=== PATIENT | male | born 1965 | race Caucasian/White ===

== ENCOUNTER 2016-08-30 19:19 | Inpatient (IN) | payer OTHER ==
[~2016-08-30] VITALS: Ht 175.3 cm; Wt 104.3 kg
[2016-08-30] MEDS ORDERED: ESCI10TA PO (20:38)
[2016-08-30] MEDS ORDERED: CARB-93 PO ×2 (20:38)
[2016-08-30] MEDS ORDERED: QUET25TA PO (20:38)
[2016-08-30] MEDS ORDERED: MULT-416 PO (20:38)
[2016-08-30] MEDS ORDERED: DONE5TAB34 PO (20:38)
[2016-08-30 20:45] VITALS: BP 147/81
[2016-08-30] MEDS ORDERED: ENOXAPARIN SODIUM 40 MG/0.4 ML DISP.SYRIN SQ SCH (23:00)
[2016-08-30] MEDS ORDERED: CEFTRIAXONE 1 G VIAL IV SCH (23:00)
[2016-08-30] MEDS ORDERED: ENOXAPARIN SODIUM 40 MG/0.4 ML DISP.SYRIN SQ ONE (23:14)
[2016-08-30] MEDS ORDERED: IV D5W 50 ML IV ONE (23:14)
[2016-08-30] MEDS ORDERED: CEFTRIAXONE 1 G VIAL ONE (23:14)
[2016-08-30] MEDS ORDERED: IV NS 0.9% 250 ML IV ONE (23:38)
[2016-08-30] MEDS ORDERED: SECONDARY IV SET 1 EA INFUS.SET MC ONE (23:39)
[2016-08-30] MEDS ORDERED: IV SET PRIMARY PUMP SET 1 EA INFUS.SET MC ONE (23:39)
[2016-08-31 06:08] LABS: BASOPHILS # (AUTO) 0.1 /CMM (0.0-0.2); BASOPHILS % (AUTO) 0.5 % (0.0-2.0); DIFF TOTAL % 100 %; EOSINOPHILS # (AUTO) 0.2 /CMM (0.0-0.7); EOSINOPHILS % (AUTO) 1.5 % (0.0-6.0); HEMATOCRIT 47 % (39-51); HEMOGLOBIN 16.3 g/dL (13.5-17.5); LYMPHOCYTES # (AUTO) 3.4 /CMM (0.8-4.8); LYMPHOCYTES % (AUTO) 27.1 % (20.0-44.0); MEAN CORPUSCULAR HEMOGLOBIN 30 PG (26.0-33.0); MEAN CORPUSCULAR HGB CONC 35 g/dl (31.0-36.0); MEAN CORPUSCULAR VOLUME 87 fL (80-96); MONOCYTES # (AUTO) 0.8 /CMM (0.1-1.30); MONOCYTES % (AUTO) 6.1 % (2.0-12.0); NEUTROPHILS # (AUTO) 8.2 /CMM (1.8-8.9); NEUTROPHILS % (AUTO) 64.8 % (43.0-81.0); PLATELET COUNT (AUTO) 278 /CMM (150-450); RED BLOOD CELL COUNT(AUTO) 5.44 MIL/uL (4.5-6.0); WHITE BLOOD COUNT (AUTO) 12.6 K/uL (4.3-11.0)
[2016-08-31 06:17] LABS: CALCIUM, SERUM 8.9 mg/dL (8.5-10.1); CREATININE 0.8 mg/dL (0.6-1.3)
[2016-08-31 08:00] VITALS: BP 153/89
[2016-08-31] MEDS ORDERED: Z GUARD REMEDY 2 OZ OINT TP PRN (09:30)
[2016-08-31] MEDS: NEOMY SULF/BACITRAC ZN/POLY 15 GM TUBE TP SCH (10:34)
[2016-08-31] MEDS: Z GUARD REMEDY 2 OZ OINT TP SCH ×2 (10:35→17:32)
[2016-08-31] MEDS ORDERED: QUET50TA14 PO (11:37)
[2016-08-31] MEDS ORDERED: CARB1TAB40 PO (11:37)
[2016-08-31] MEDS ORDERED: CARB1TAB21 PO (11:37)
[2016-08-31] MEDS: ESCITALOPRAM OXALATE (10 MG) 10 MG TABLET PO SCH (12:34)
[2016-08-31] MEDS: DONEPEZIL 5 MG TABLET PO SCH (12:34)
[2016-08-31 16:00] VITALS: BP 162/81
[2016-08-31] MEDS: QUETIAPINE FUMARATE 25 MG TABLET PO SCH (17:31)
[2016-08-31] MEDS: CARBIDOPA/LEVODOPA 25/100 MG 1 UDTAB PO SCH ×2 (17:31→20:41)
[2016-08-31] MEDS ORDERED: SEROQUEL 25 MG PO SCH (18:00)
[2016-08-31 20:14] VITALS: BP 133/82
[2016-08-31] MEDS: ENOXAPARIN SODIUM 40 MG/0.4 ML DISP.SYRIN SQ SCH (20:44)
[2016-08-31] MEDS: CARBIDOPA/LEVA CR 25/100MG 1 TAB.SA PO SCH (22:23)
[2016-08-31] MEDS: CEFTRIAXONE 1 G in IV D5W 50 ML IV SCH (22:28)
[2016-09-01 08:00] VITALS: BP 120/74
[2016-09-01] MEDS: ESCITALOPRAM OXALATE (10 MG) 10 MG TABLET PO SCH (08:33)
[2016-09-01] MEDS: DONEPEZIL 5 MG TABLET PO SCH (08:33)
[2016-09-01] MEDS: NEOMY SULF/BACITRAC ZN/POLY 15 GM TUBE TP SCH (08:34)
[2016-09-01] MEDS: Z GUARD REMEDY 2 OZ OINT TP SCH ×2 (08:34→16:29)
[2016-09-01] MEDS: CARBIDOPA/LEVODOPA 25/100 MG 1 UDTAB PO SCH ×5 (08:38→20:18)
[2016-09-01 16:00] VITALS: BP 117/69
[2016-09-01] MEDS: QUETIAPINE FUMARATE 25 MG TABLET PO SCH (17:29)
[2016-09-01 20:00] VITALS: BP 138/85
[2016-09-01] MEDS: CARBIDOPA/LEVA CR 25/100MG 1 TAB.SA PO SCH (21:57)
[2016-09-01] MEDS: ENOXAPARIN SODIUM 40 MG/0.4 ML DISP.SYRIN SQ SCH (21:57)
[2016-09-01] MEDS: CEFTRIAXONE 1 G in IV D5W 50 ML IV SCH (22:00)
[2016-09-02 06:11] LABS: BASOPHILS # (AUTO) 0.1 /CMM (0.0-0.2); BASOPHILS % (AUTO) 0.8 % (0.0-2.0); DIFF TOTAL % 100 %; EOSINOPHILS # (AUTO) 0.2 /CMM (0.0-0.7); EOSINOPHILS % (AUTO) 1.3 % (0.0-6.0); HEMATOCRIT 48 % (39-51); HEMOGLOBIN 16.3 g/dL (13.5-17.5); LYMPHOCYTES # (AUTO) 4.7 /CMM (0.8-4.8); MEAN CORPUSCULAR HEMOGLOBIN 30 PG (26.0-33.0); MEAN CORPUSCULAR HGB CONC 34 g/dl (31.0-36.0); MEAN CORPUSCULAR VOLUME 88 fL (80-96); MONOCYTES % (AUTO) 7.9 % (2.0-12.0); NEUTROPHILS # (AUTO) 6.5 /CMM (1.8-8.9); PLATELET COUNT (AUTO) 256 /CMM (150-450); RED BLOOD CELL COUNT(AUTO) 5.51 MIL/uL (4.5-6.0); WHITE BLOOD COUNT (AUTO) 12.5 K/uL (4.3-11.0)
[2016-09-02 06:20] LABS: CALCIUM, SERUM 8.9 mg/dL (8.5-10.1); CREATININE 0.9 mg/dL (0.6-1.3); POTASSIUM 3.9 mmol/L (3.5-5.1)
[2016-09-02 08:00] VITALS: BP 135/89
[2016-09-02] MEDS: ESCITALOPRAM OXALATE (10 MG) 10 MG TABLET PO SCH (08:31)
[2016-09-02] MEDS: DONEPEZIL 5 MG TABLET PO SCH (08:31)
[2016-09-02] MEDS: CARBIDOPA/LEVODOPA 25/100 MG 1 UDTAB PO SCH ×5 (08:31→20:02)
[2016-09-02] MEDS: NEOMY SULF/BACITRAC ZN/POLY 15 GM TUBE TP SCH (08:31)
[2016-09-02] MEDS: Z GUARD REMEDY 2 OZ OINT TP SCH ×2 (08:32→16:02)
[2016-09-02] MEDS ORDERED: BISACODYL SUPP (10 MG) 10 MG/SUPP.RECT SUPP.RECT RC PRN (12:30)
[2016-09-02 16:00] VITALS: BP 128/78
[2016-09-02 16:32] VITALS: BP 128/78
[2016-09-02] MEDS: QUETIAPINE FUMARATE 25 MG TABLET PO SCH (17:02)
[2016-09-02 20:00] VITALS: BP 124/72
[2016-09-02] MEDS: SENNOSIDES 8.6 MG TABLET PO SCH (21:24)
[2016-09-02] MEDS: CARBIDOPA/LEVA CR 25/100MG 1 TAB.SA PO SCH (21:24)
[2016-09-02] MEDS: ENOXAPARIN SODIUM 40 MG/0.4 ML DISP.SYRIN SQ SCH (21:36)
[2016-09-02] MEDS: CEFTRIAXONE 1 G in IV D5W 50 ML IV SCH (23:05)
[2016-09-03 08:00] VITALS: BP 138/83
[2016-09-03] MEDS: DONEPEZIL 5 MG TABLET PO SCH (09:43)
[2016-09-03] MEDS: ESCITALOPRAM OXALATE (10 MG) 10 MG TABLET PO SCH (09:44)
[2016-09-03] MEDS: CARBIDOPA/LEVODOPA 25/100 MG 1 UDTAB PO SCH ×5 (09:44→20:18)
[2016-09-03] MEDS: NEOMY SULF/BACITRAC ZN/POLY 15 GM TUBE TP SCH (09:46)
[2016-09-03] MEDS: Z GUARD REMEDY 2 OZ OINT TP SCH ×2 (09:46→17:32)
[2016-09-03] MEDS: SENNOSIDES 8.6 MG TABLET PO SCH ×2 (09:46→21:31)
[2016-09-03 16:00] VITALS: BP 160/90
[2016-09-03] MEDS: QUETIAPINE FUMARATE 25 MG TABLET PO SCH (17:30)
[2016-09-03 20:00] VITALS: BP_SYST 117; BP_SYST 118; BP_DIAS 57; BP_DIAS 72
[2016-09-03] MEDS: ENOXAPARIN SODIUM 40 MG/0.4 ML DISP.SYRIN SQ SCH (21:30)
[2016-09-03] MEDS: CARBIDOPA/LEVA CR 25/100MG 1 TAB.SA PO SCH (21:31)
[2016-09-03] MEDS: CEFTRIAXONE 1 G in IV D5W 50 ML IV SCH (22:47)
[2016-09-04] MEDS ORDERED: PANTOPRAZOLE 40 MG TABLET.DR PO SCH (07:30)
[2016-09-04 08:00] VITALS: BP 140/60
[2016-09-04] MEDS: CARBIDOPA/LEVODOPA 25/100 MG 1 UDTAB PO SCH ×3 (08:28→13:17)
[2016-09-04] MEDS: DONEPEZIL 5 MG TABLET PO SCH (08:29)
[2016-09-04] MEDS: SENNOSIDES 8.6 MG TABLET PO SCH (08:29)
[2016-09-04] MEDS: ESCITALOPRAM OXALATE (10 MG) 10 MG TABLET PO SCH (08:29)
[2016-09-04] MEDS: NEOMY SULF/BACITRAC ZN/POLY 15 GM TUBE TP SCH (08:30)
[2016-09-04] MEDS: Z GUARD REMEDY 2 OZ OINT TP SCH (08:34)
== END 2016-09-04 13:20 | DRG 383 ==
LOC: ER 19:22 → MEDSG2 20:36
PROVIDERS: ADMIT Internal Medicine; ATTEND Internal Medicine
DX: L03.115 Cellulitis of right lower limb (principal); G20 Parkinson's disease; S09.90XA Unspecified injury of head, initial encounter; G30.9 Alzheimer's disease, unspecified; F02.80 Dementia in other diseases classified elsewhere, unspecified severity, without behavioral disturbance, psychotic disturbance, mood disturbance, and anxiety; I10 Essential (primary) hypertension; E66.9 Obesity, unspecified; F29 Unspecified psychosis not due to a substance or known physiological condition; Z87.891 Personal history of nicotine dependence; F32.9 Major depressive disorder, single episode, unspecified; K59.00 Constipation, unspecified; W19.XXXA Unspecified fall, initial encounter; R62.50 Unspecified lack of expected normal physiological development in childhood
CPT/HCPCS: 36415; 80048-TC; 82962-TC; 85025-TC; 87081-TC; 97001-TC; 97003-TC; A4606; A6402; J0696; J1650; J7050; J7060; Z7610